=== PATIENT | male | born 1970 | race Caucasian/White ===

== ENCOUNTER 2016-11-18 07:11 | Emergency (ER) | payer SELFPAY ==
[~2016-11-18] VITALS: Wt 100.0 kg
[2016-11-18] MEDS ORDERED: ACETAMINOPHEN 500 MG TAB PO STA (08:00)
[2016-11-18] MEDS ORDERED: LIDOCAINE 2% VISC 15 ML CUP PO ONE (08:00)
[2016-11-18] MEDS ORDERED: D-ME473S18 PO (08:34)
[2016-11-18] MEDS ORDERED: AZIT250T94 PO (08:34)
[2016-11-18] MEDS ORDERED: TYL500 PO (08:35)
--- NOTE | 2016-11-18 09:00 | ERD ---
ER Documentation Chief Complaint Date/Time DATE: 11/18/16 TIME: 08:55 Chief Complaint sore throat for 4 days cough and congestion with fevers HPI This is a 46-year-old male presents to the ER with fever, sore throat, cough, loss of voice for the last 4 days. Cough is dry and constant. Patient denies any chest pain or shortness of breath. Patient has a past medical history of diabetes. He is compliant with medication. Patient did get his flu shot. ROS 12 point review of systems was done, all negative except per HPI. Medications Home Meds Active Scripts Acetaminophen* (Tylenol*) 500 Mg Tab, 1000 MG PO Q8H Y for PAIN AND OR ELEVATED TEMP for 3 Days, TAB Prov:VELMACINDY STEWART C 11/18/16 Dextromethorphan Hb-Promethazine Hcl (Promethazine DM Syrup) 473 Ml Syrup, 10 ML PO Q6H Y for COUGH, #4 OZ Prov:VELMA,CINDY C 11/18/16 Azithromycin* (Zithromax*) 250 Mg Tablet, 250 MG PO .ZPACK DIRECTED, #6 TAB TAKE 500 MG (2 TABS) THE FIRST DAY THEN 250 MG (1 TAB) DAYS 2-5 Prov:VELMA,CINDY C 11/18/16 Allergies Allergies: Coded Allergies: No Known Allergy (Unverified , 11/18/16) PMhx/Soc Medical and Surgical Hx: pt denies Medical Hx, pt denies Surgical Hx Hx Alcohol Use: No Hx Substance Use: No Hx Tobacco Use: No Smoking Status: Never smoker Physical Exam Vitals Vital Signs Date Time Temp Pulse Resp B/P Pulse Ox O2 Delivery O2 Flow Rate FiO2 11/18/16 07:17 100.2 112 21 139/84 97 Physical Exam GENERAL: The patient is well-developed, well-nourished, in no acute distress. NECK: Cervical spine is non tender with no step off. Supple, no nuchal rigidity HEENT: Atraumatic. Pupils equal, round and reactive to light. Extraocular muscles are grossly intact. Conjunctivae pink, no discharge. Bilateral tympanic membranes are clear with no evidence of erythema, effusion or dulling of the light reflex. Tonsilar erythema with no exudates or uvular deviation. Clear rhinorrhea. RESPIRATORY: Clear to auscultation bilaterally. There are no rales, wheezes or rhonchi. HEART: Regular rate and rhythm. No murmurs, clicks, rubs or gallops. EXTREMITIES: No clubbing or cyanosis. Full range of motion. Grossly neurovascularly intact. NEUROLOGIC: Alert and oriented. Cranial nerves II through XII are intact. SKIN: There is no rash. The skin is warm and dry. Results 24 hrs Current Medications Medications (Trade) Dose Ordered Sig/Esteban Route PRN Reason Start Time Stop Time Status Last Admin Dose Admin Lidocaine (Xylocaine (Viscous)) 15 ml ONCE ONCE PO 11/18/16 08:00 11/18/16 08:01 DC 11/18/16 08:06 Acetaminophen (Tylenol Tab) 1,000 mg ONCE STAT PO 11/18/16 08:00 11/18/16 08:01 DC 11/18/16 08:06 Procedures/MDM Differential diagnosis includes but is not limited to; Viral URI, allergic rhinitis, bronchitis, pertussis,pneumonia. Patient has an upper respiratory infection viral vs bacterial. Since patient is diabetic and is worsening he will be treated for a possible bacterial upper respiratory infection. He will be sent home with azithromycin. Clinical suspicion for pneumonia is low as patient appears well, is not hypoxic or in any respiratory distress. Additionally, patients physical examination is benign. Plan was discussed with patient they understand and agree. Patient needs to follow up with PCP in 1-2 days or return to ER sooner if symptoms worsen. Departure Diagnosis: Primary Impression: Upper respiratory infection Condition: Stable Patient Instructions: Preventing Common Respiratory Infections Additional Instructions: Llame al doctor BILLY y mookie jayson KEYUR PARA DENTRO DE 1-2 MENDOZA.Dgale a la secretaria que nosotros le instruimos hacer esta keyur.Avise o llame si hernandez condicin se empeora antes de la keyur. Regresa aqui si peor o no mejor. CINDY CARREON Nov 18, 2016 08:59
== END 2016-11-18 09:10 | disposition home or self-care (01) ==
LOC: FTE 07:11
DX: J06.9 Acute upper respiratory infection, unspecified (principal)
CPT/HCPCS: 99283

== ENCOUNTER 2017-08-15 12:37 | Inpatient (IN) | payer MEDICAID ==
[~2017-08-15] VITALS: Ht 167.6 cm; Wt 102.0 kg
[~2017-08-15 12:37] MED LIST: AZIT250T94 PO; D-ME473S18 PO; TYL500 PO
[2017-08-15] MEDS ORDERED: SOD CHLORIDE 0.9% 1,000 ML IV STA (13:15)
--- NOTE | 2017-08-15 13:20 | ERD ---
ER Documentation Chief Complaint Chief Complaint generalized weakness, dizziness x 1 day; HPI Patient is a 47-year-old diabetic male who presents to the ER with approximately 1 hour of sudden onset, constant, moderate generalized weakness and dizziness. Describes the dizziness as lightheadedness and feeling like his whole body is heavy. He denies chest pain or shortness of breath. He denies fever or vomiting. He states that he took his diabetes medicine today but has not eaten yet. He is on Januvia and metformin. ROS All systems reviewed and are negative except as per history of present illness. Medications Home Meds Reported Medications Ergocalciferol (Vitamin D2) (VITAMIN D2) 50,000 Unit Capsule, 00322 UNIT PO Q7D , CAP 08/15/17 Atorvastatin Calcium* (Atorvastatin Calcium*) 20 Mg Tablet, 20 MG PO DAILY, #30 TAB 08/15/17 Glipizide* (Glipizide*) 5 Mg Tablet, 5 MG PO AC BREAKFAST DINNER, TAB 08/15/17 Metformin Hcl* (Metformin Hcl*) 500 Mg Tablet, 500 MG PO WITH BREAKFAST DINNE, # 60 TAB 08/15/17 Discontinued Scripts Acetaminophen* (Tylenol*) 500 Mg Tab, 1000 MG PO Q8H Y for PAIN AND OR ELEVATED TEMP for 3 Days, TAB Prov:VELMACINDY STEWART 11/18/16 Dextromethorphan Hb-Promethazine Hcl (Promethazine DM Syrup) 473 Ml Syrup, 10 ML PO Q6H Y for COUGH, #4 OZ Prov:VELMAJAZZYCINDY C 11/18/16 Azithromycin* (Zithromax*) 250 Mg Tablet, 250 MG PO .ZPACK DIRECTED, #6 TAB TAKE 500 MG (2 TABS) THE FIRST DAY THEN 250 MG (1 TAB) DAYS 2-5 Prov:VELMACINDY C 11/18/16 Allergies Allergies: Coded Allergies: No Known Allergy (Unverified , 08/15/17) PMhx/Soc Past medical history: Diabetes mellitus, hyperlipidemia Past surgical history: Denies Social history: Drinks occasional alcohol, denies tobacco or illicit drugs Hx Alcohol Use: No Hx Substance Use: No Hx Tobacco Use: No FmHx Family History: diabetes, No coronary disease Physical Exam Vitals Vital Signs Date Time Temp Pulse Resp B/P Pulse Ox O2 Delivery O2 Flow Rate FiO2 08/15/17 17:32 94 16 137/83 100 Room Air 08/15/17 15:15 90 18 141/52 98 Room Air 08/15/17 13:15 98.6 92 18 135/89 99 08/15/17 12:48 98.3 104 18 138/81 96 Physical Exam Const: Alert, no acute distress Head: Atraumatic Eyes: Normal Conjunctiva, No pallor, no icterus ENT: Normal External Ears, Nose and Mouth. Mucous membranes moist Neck: Full range of motion..~ No meningismus. Resp: Clear to auscultation bilaterally, No wheezes, no rales Cardio: Regular rate and rhythm, no murmurs Abd: Soft, non tender, non distended. Skin: No petechiae or rashes Back: No midline or flank tenderness Ext: No cyanosis, or edema Neur: Awake and alert, Cranial nerves II through XII intact bilaterally, strength and sensation full in 4 extremities, no pronator drift Psych: Normal Mood and Affect Result Diagram: 08/15/17 1325 08/15/17 1325 Results 24 hrs Laboratory Tests Test 08/15/17 13:15 08/15/17 13:25 08/15/17 14:20 Bedside Glucose 202mg/dL White Blood Count 8.610^3/ul Red Blood Count 4.7010^6/ul Hemoglobin 15.0g/dl Hematocrit 43.5% Mean Corpuscular Volume 92.6fl Mean Corpuscular Hemoglobin 31.9pg Mean Corpuscular Hemoglobin Concent 34.5g/dl Red Cell Distribution Width 11.5% Platelet Count 66742^3/UL Mean Platelet Volume 11.1fl Neutrophils % 56.5% Lymphocytes % 34.6% Monocytes % 6.6% Eosinophils % 1.4% Basophils % 0.3% Nucleated Red Blood Cells % 0.0/100WBC Neutrophils # 4.910^3/ul Lymphocytes # 3.010^3/ul Monocytes # 0.610^3/ul Eosinophils # 0.110^3/ul Basophils # 0.010^3/ul Nucleated Red Blood Cells # 0.010^3/ul Sodium Level 138mmol/L Potassium Level 3.7mmol/L Chloride Level 98mmol/L Carbon Dioxide Level 26mmol/L Anion Gap 18 Blood Urea Nitrogen 14mg/dl Creatinine 0.63mg/dl Glucose Level 225mg/dl Calcium Level 9.0mg/dl Troponin I < 0.012ng/ml Ethyl Alcohol Level < 10.0mg/dl Urine Color YELLOW Urine Clarity CLEAR Urine pH 5.0 Urine Specific [place] 1.019 Urine Ketones NEGATIVEmg/dL Urine Nitrite NEGATIVEmg/dL Urine Bilirubin NEGATIVEmg/dL Urine Urobilinogen NEGATIVEmg/dL Urine Leukocyte Esterase NEGATIVELeu/ul Urine Hemoglobin NEGATIVEmg/dL Urine Glucose 1+mg/dL Urine Total Protein NEGATIVEmg/dl Urine Opiates Screen Negative Urine Barbiturates Negative Urine Amphetamines Screen Negative Urine Benzodiazepines Screen Negative Urine Cocaine Screen Negative Urine Cannabinoids Positive Current Medications Medications (Trade) Dose Ordered Sig/Esteban Route PRN Reason Start Time Stop Time Status Last Admin Dose Admin Sodium Chloride (NS) 1,000 ml @ 1,000 mls/hr Q1H STAT IV 08/15/17 13:15 08/15/17 14:14 DC 08/15/17 13:42 Aspirin (Aspirin) 162 mg ONCE ONCE PO 08/15/17 20:00 08/15/17 20:01 DC Ondansetron HCl (Zofran Inj) 4 mg ER BRIDGE PRN IV NAUSEA AND/OR VOMITING 08/15/17 20:00 08/16/17 19:59 Acetaminophen (Tylenol Tab) 650 mg ER BRIDGE PRN PO MILD PAIN/FEVER 08/15/17 20:00 08/16/17 19:59 Atorvastatin Calcium (Lipitor) 20 mg DAILY PO 08/16/17 09:00 UNV IV Flush (NS 3 ml) 3 ml PER PROTOCOL IV 08/15/17 20:00 UNV Ondansetron HCl (Zofran Tab) 4 mg Q6H PRN PO NAUSEA AND/OR VOMITING 08/15/17 20:00 UNV Nitroglycerin (Nitroglycerin (Sl Tab) 0.4 Mg) 1 tab Q5M PRN SL CHEST PAIN 08/15/17 20:00 UNV Acetaminophen (Tylenol Tab) 650 mg Q6H PRN PO PAIN LEVEL 1-3 OR FEVER 08/15/17 20:00 UNV Miscellaneous Information (* Miscellaneous Pharmacy Order) Discontinue current oral sulfonylur... ONCE ONCE XX 08/15/17 20:00 08/15/17 20:01 UNV Diagnostic Test (Pha) (Accu-Chek) 1 XX 08/16/17 02:00 UNV Miscellaneous Information (* Miscellaneous Pharmacy Order) HYPOGLYCEMIA PROTOCOL w... ONCE ONCE XX 08/15/17 20:00 08/15/17 20:01 UNV Insulin Aspart (Novolog Insulin Pen) NOVOLOG *MILD* ALGORITHM WITH MEALS BEDTIME SC 08/15/17 21:00 UNV Miscellaneous Information (* Miscellaneous Pharmacy Order) Discontinue all previ... ONCE ONCE XX 08/15/17 20:00 08/15/17 20:01 UNV Procedures/MDM EKG read by me: Time 1306, rate 101 Rhythm: Sinus tachycardia [place]: Rightward axis Intervals: Normal ST-T waves: no ischemic changes Ectopy: No Q-waves: V2 only Impression: Borderline tachycardia without ischemic changes MDM: Patient is a 47-year-old male who presents to the ER with acute generalized weakness. He later complained of left-sided weakness, but this was not apparent on exam. He did have variable effort during the exam. His workup was unremarkable, but on reassessment, his stated that she been contacted by his [id number] who saw him at the onset of symptoms, and states that he nearly passed out and was unable to speak for 15 minutes. There is no report of unilateral weakness during this episode. The patient had a tox screen positive for cannabis, but initially did not disclose using any drugs. He subsequently stated that he had used cannabis 1 month ago, but when we he was told that this was not likely to result in a positive tox screen, he stated that it may have been a week ago or 3 days ago. On reassessment, the states that the patient still remains confused. He does not have any specific signs of cannabis intoxication and he vehemently denies using cannabis today. Given the report of a 15 minute period of inability to speak and current disorientation, I will admit the patient for further workup. Head CT was performed and is unremarkable. The patient was given a dose of aspirin. There is no ethanol intoxication. I suspect that there may be underlying conversion disorder or anxiety as the cause of the patient's symptoms, but given lack of certainty and potential for more serious diagnosis, as well as the patient's comorbidities, I will admit him to observation for TIA workup. Case was discussed with Dr. Murray. Departure Diagnosis: Primary Impression: Acute weakness Additional Impression: TIA (transient ischemic attack) Transient cerebral ischemia type: unspecified Qualified Code: G45.9 - Transient cerebral ischemia, unspecified type Condition: ANISA Romero MD Aug 15, 2017 13:20
[2017-08-15 13:40] LABS: BASOPHILS % 0.3 % (0.0-2.0); EOSINOPHILS # 0.1 10^3/ul (0.0-0.5); EOSINOPHILS % 1.4 % (0.0-7.0); HEMATOCRIT 43.5 % (42.0-52.0); LYMPHOCYTES % 34.6 % (15.0-51.0); MEAN CORPUSCULAR HEMOGLOBIN 31.9 pg (29.0-33.0); MEAN CORPUSCULAR HGB CONC 34.5 g/dl (32.0-37.0); MEAN CORPUSCULAR VOLUME 92.6 fl (82.0-101.0); MEAN PLATELET VOLUME 11.1 fl (7.4-10.4); MONOCYTE # 0.6 10^3/ul (0.3-0.9); MONOCYTES % 6.6 % (0.0-11.0); NEUTROPHIL # 4.9 10^3/ul (1.6-7.5); NEUTROPHILS % 56.5 % (39.0-77.0); PLATELET COUNT 212 10^3/UL (140-415); RED CELL DISTRIBUTION WIDTH 11.5 % (11.5-14.5); WHITE BLOOD COUNT 8.6 10^3/ul (4.8-10.8)
--- NOTE | 2017-08-15 13:45 | RADRPT ---
PROCEDURE: XR Chest. CLINICAL INDICATION: Syncope TECHNIQUE: Frontal chest x-ray was obtained. COMPARISON: None. FINDINGS: Heart is not enlarged. Mediastinum is not widened. No hilar mass is seen. Lungs are clear of any inf iltrates. There is no effusion or pneumothorax. IMPRESSION: No evidence for active cardiopulmonary disease. .Clyde Heart MD, MD Date Time Electronically viewed and signed by .Clyde Heart MD, MD on 08/15/2017 13:44 .A/
[2017-08-15 13:52] LABS: ANION GAP 18 (8-16); BLOOD UREA NITROGEN 14 mg/dl (7-20); CARBON DIOXIDE 26 mmol/L (21-31); CHLORIDE 98 mmol/L (97-110); CREATININE 0.63 mg/dl (0.61-1.24); GLUCOSE 225 mg/dl (70-220); POTASSIUM 3.7 mmol/L (3.5-5.1); SODIUM 138 mmol/L (135-144)
[2017-08-15 13:54] LABS: ETHANOL < 10.0 mg/dl
[2017-08-15 14:07] LABS: TROPONIN-I < 0.012 ng/ml (0.00-0.12)
[2017-08-15 14:32] LABS: ADD UMIC NO; UR ASCORBIC ACID NEGATIVE (NEGATIVE); UR BILIRUBIN (Dip) NEGATIVE (NEGATIVE); UR BLOOD (Dip) NEGATIVE (NEGATIVE); UR CLARITY CLEAR (CLEAR); UR COLOR YELLOW (YELLOW); UR GLUCOSE (Dip) 1+ mg/dL (NEGATIVE); UR KETONES (Dip) NEGATIVE (NEGATIVE); UR LEUKOCYTE ESTERASE (Dip) NEGATIVE Leu/ul (NEGATIVE); UR NITRITE (Dip) NEGATIVE (NEGATIVE); UR SPECIFIC GRAVITY (Dip) 1.019 (1.003-1.030); UR TOTAL PROTEIN (Dip) NEGATIVE (NEGATIVE); UR UROBILINOGEN (Dip) NEGATIVE (NEGATIVE)
[2017-08-15 14:51] LABS: BARBITURATES Negative (NEGATIVE); BENZODIAZEPINES Negative (NEGATIVE); CANNABINOIDS Positive (NEGATIVE); COCAINE Negative (NEGATIVE); OPIATES Negative (NEGATIVE)
[2017-08-15] MEDS ORDERED: GLIP5TAB13 PO (16:37)
[2017-08-15] MEDS ORDERED: METF500T4 PO (16:37)
--- NOTE | 2017-08-15 17:58 | RADRPT ---
PROCEDURE: CT Brain without contrast. CLINICAL INDICATION: Weakness, dizziness, altered mental status TECHNIQUE: Routine CT scan of the brain was performed on a high resolution multi detector scanner without intravenous contrast. One or more of the following dose reduction techniques were used: Auto mated exposure control; Adjustment of the mA and/or kV according to patient size; Use of iterative r econstruction technique. CTDI = 44 mGy. DLP = 720 mGy-cm. DICOM images are available. COMPARISON: No prior relevant examinations are available for comparison. FINDINGS: Hemorrhage: No evidence of intracranial hemorrhage. Acute ischemic changes: No evidence of acute ischemic changes. Mass effect: None. Parenchymal volume: Within normal limits for age. Ventricular system: Concordant with parenchymal volume. Chronic changes: Parenchymal attenuation is within normal limits. Extracranial soft tissues: Unremarkable. Calvarium: No fractures. Paranasal sinuses: Visualized paranasal sinuses are clear. Mastoid air cells: Visualized mastoid air cells are clear. IMPRESSION: No acute intracranial abnormalities. Normal appearance of the brain parenchyma. MRI of the brain recommended for further evaluation. RPTAT: AADD .Abiodun Monge MD, MD Date Time Electronically viewed and signed by .Abiodun Monge MD, MD on 08/15/2017 17:58 .B/
[2017-08-15] MEDS ORDERED: ATOR20TA38 PO (18:26)
[2017-08-15] MEDS ORDERED: ERGO500037 PO (18:26)
[2017-08-15] MEDS ORDERED: ONDANSETRON 4 MG INJ IV PRN (20:00)
[2017-08-15] MEDS ORDERED: NITROGLYCERIN (SL) 0.4 MG TAB SL PRN (20:00)
[2017-08-15] MEDS ORDERED: ASPIRIN 81 MG TAB PO ONE (20:00)
[2017-08-15] MEDS ORDERED: ACETAMINOPHEN 325 MG TAB PO PRN ×2 (20:00)
[2017-08-15] MEDS ORDERED: ONDANSETRON 4 MG TAB PO PRN (20:00)
[2017-08-15] MEDS ORDERED: NACL 0.9% 3 ML SYG IV SCH (20:00)
[2017-08-15 20:24] VITALS: TEMP 98.8
[2017-08-15 20:50] VITALS: BP 115/67; RESP 18
[2017-08-15] MEDS ORDERED: GLUCOSE GEL 15 GRAM TUBE PO PRN ×2 (21:00)
[2017-08-15] MEDS ORDERED: GLUCAGON 1 MG INJ IM PRN (21:00)
[2017-08-15] MEDS: INSULIN ASPART [NOVOLOG] 3 ML PEN SC SCH (21:00)
[2017-08-15] MEDS ORDERED: GLUCOSE GEL 15 GRAM TUBE BUCCAL PRN (21:00)
[2017-08-15] MEDS ORDERED: DEXTROSE 50% 50 ML SYRINGE IV PRN ×2 (21:00)
[2017-08-15 21:10] VITALS: PULSE 81
[2017-08-15 21:48] LABS: CREATINE KINASE 63 IU/L (23-200)
[2017-08-15 22:05] LABS: CK-MB 0.29 ng/ml (0.0-2.4); TROPONIN-I < 0.012 ng/ml (0.00-0.12)
[2017-08-15] MEDS: ATORVASTATIN 20 MG TAB PO SCH (22:10)
[2017-08-15 22:14] VITALS: Ht 167.6 cm; Wt 102.0 kg
[2017-08-16] VITALS (13 sets, daily range): BP systolic 104–118; BP diastolic 59–75; PULSE 66–75; RESP 17–20
[2017-08-16 01:47] LABS: CREATINE KINASE 63 IU/L (23-200)
[2017-08-16] MEDS: ACCU-CHEK XX SCH (02:00)
[2017-08-16 02:07] LABS: CK-MB 0.26 ng/ml (0.0-2.4); TROPONIN-I < 0.012 ng/ml (0.00-0.12)
--- NOTE | 2017-08-16 05:22 | HP ---
Date/Time of Note Date/Time of Note DATE: 08/16/17 TIME: 04:48 Assessment/Plan VTE Prophylaxis VTE Prophylaxis Intervention: SCD's Lines/Catheters IV [facility]from [facility] Saline [facility] Assessment/Plan Chief Complaint/Hosp Course This is a 47-year-old male being admitted to the telemetry floor for: #1 altered mental status: Rule out TIA versus hypoglycemic event versus possible drug reaction versus other intracranial etiology. Patient's's symptoms have completely resolved at this point. CT of the brain was negative. Will obtain an MRI of his brain with and without contrast. Will obtain a carotid Dopplers. Will check echocardiogram with bubble study. Will monitor on telemetry. Will assess his glucose levels. Check hemoglobin A1c, lipid levels and TSH. Will need to encourage patient that when he takes a diabetes medications to make sure he does not skip meals. Consult neurology if indicated #2 diabetes mellitus: At the current time will hold metformin and Januvia. Will monitor his blood sugars put patient on insulin sliding scale. Will check a hemoglobin A1c. Will need to encourage patient to not skip meals when taking his diabetes medications. Check urine microalbumin. #3 hyper lipidemia: We will check lipid panel, and assess for need for statin based on ASCVD risk. #4 DVT and GI prophylaxis: SCDs, no GI prophylaxis indicated Further treatment strategy will be implemented as per the clinical course Problems: HPI/ROS Admit Date/Time Admit Date/Time Aug 15, 2017 at 19:52 Hx of Present Illness Chief complaint: Generalized weakness, possible syncope This is a 47-year-old diabetic male who presented to the ER with approximately 1 hour of sudden onset, constant, moderate generalized weakness and dizziness. Described the dizziness as lightheadedness and feeling like his whole body is heavy. He denies chest pain or shortness of breath. He denies fever or vomiting. He states that this occurred while he was at work. He states that in the morning he was doing totally fine however when he was at work he took his diabetes medications and while he was sitting on the chair he started feeling the weakness and dizziness. The next thing he remembers was that he had his coworkers lay him on the floor gently. He does not recall what happened after that he thinks he may have blacked out for short time. When he awoke he stated that he was confused and dizzy and was not himself. They suffer a short time he felt numbness burning on the left side of his face and left upper extremity and left lower extremity and this is why he was brought to the ED. states that he took his diabetes medications his metformin and Januvia on an empty stomach which usually does not do. He reports that he used marijuana proximally 2-3 weeks ago Upon my evaluation of the patient, his symptoms had completely resolved. He states that he feels like he is almost close to back to normal. Denies any continuing of that numbness and burning sensation that he felt of his face and left side of his body. Allergies: NKDA Medications: See NOV ROS Const: As per HPI Eyes : No pain discharge or redness or change in visual acuity ENT: No pain, sore throat, congestion, congestion, dysphagia or discharge Respiratory: No shortness of breath, cough, sputum, wheezing, or pleuritic pain Cardiovascular: No chest pain, palpitation, PND, or edema GI : no change in appetite, abdominal pain, nausea, vomiting, diarrhea, constipation, or change in the color his stool Genitourinary: No dysuria, hematuria, flank pain , discharge or CVA tenderness Musculoskeletal: As per HPI Skin: No rash, bruising or hives Neuro: As per HPI Endocrine: No polyuria, polydipsia, temperature intolerance Psych: No hallucination, depression, anxiety or suicidal ideation Additional Comments PROCEDURE: XR Chest. CLINICAL INDICATION: Syncope TECHNIQUE: Frontal chest x-ray was obtained. COMPARISON: None. FINDINGS: Heart is not enlarged. Mediastinum is not widened. No hilar mass is seen. Lungs are clear of any infiltrates. There is no effusion or pneumothorax. IMPRESSION: No evidence for active cardiopulmonary disease. .Clyde Heart MD, MD Date Time Electronically viewed and signed by .Clyde Heart MD, MD on 08/15/2017 13: 44 .A/ CC: ANISA LARRY MD PMH/Family/Social Past Medical History Diabetes, hyperlipidemia Past Surgical History Past Surgical Hx: no surgical history Family History Significant Family History: hypertension (Mom) Social History Alcohol Use: occasionally Smoking Status: Never smoker Drug Use: marijuana Exam/Review of Systems Vital Signs Vitals Vital Signs Date Time Temp Pulse Resp B/P Pulse Ox O2 Delivery O2 Flow Rate FiO2 08/16/17 04:16 66 08/16/17 00:00 97.6 18 118/67 96 08/15/17 20:24 Room Air Intake and Output 08/15/17 08/15/17 08/16/17 15:00 23:00 07:00 Intake Total 1000 ml Balance 1000 ml Exam Exam General: Patient lying in bed in no acute distress HEENT: Atraumatic, normocephalic. The pupils are equal, round and reactive. Extraocular motor are intact Neck: Supple with full range of motion. No rigidity or meningismus Chest: Nontender Lungs: Clear to auscultation bilaterally no crackles rales or wheezing Heart: Normal S1-S2, Regular rhythm and rate. No murmur, S3, or S4 Abdomen: Soft , nontender, nondistended , bowel sounds are present. No guarding no rebound tenderness , No masses or organomegaly. No costovertebral temporal angle mass Extremities: Normal to inspection, no edema no cyanosis Neurologic: Normal mental status, speech normal, cranial nerves II through XII are intact, motor and sensory are intact, no focal weakness, drinks 5 out of 5 in bilateral upper and lower extremities, symmetric appearance of the face Additional Comments EKG read by me: Time 1306, rate 101 Rhythm: Sinus tachycardia [place]: Rightward axis Intervals: Normal ST-T waves: no ischemic changes Ectopy: No Q-waves: V2 only Impression: Borderline tachycardia without ischemic changesPROCEDURE: CT Brain without contrast. CLINICAL INDICATION: Weakness, dizziness, altered mental status TECHNIQUE: Routine CT scan of the brain was performed on a high resolution multi detector scanner without intravenous contrast. One or more of the following dose reduction techniques were used: Automated exposure control; Adjustment of the mA and/or kV according to patient size; Use of iterative reconstruction technique. CTDI = 44 mGy. DLP = 720 mGy-cm. DICOM images are available. COMPARISON: No prior relevant examinations are available for comparison. FINDINGS: Hemorrhage: No evidence of intracranial hemorrhage. Acute ischemic changes: No evidence of acute ischemic changes. Mass effect: None. Parenchymal volume: Within normal limits for age. Ventricular system: Concordant with parenchymal volume. Chronic changes: Parenchymal attenuation is within normal limits. Extracranial soft tissues: Unremarkable. Calvarium: No fractures. Paranasal sinuses: Visualized paranasal sinuses are clear. Mastoid air cells: Visualized mastoid air cells are clear. IMPRESSION: No acute intracranial abnormalities. Normal appearance of the brain parenchyma. MRI of the brain recommended for further evaluation. RPTAT: AADD .Abiodun Mnoge MD, Date Time Electronically viewed and signed by .Abiodun Monge MD, on 08/15/2017 17:58 .B/ CC: ANISA LARRY MD PROCEDURE: XR Chest. CLINICAL INDICATION: Syncope TECHNIQUE: Frontal chest x-ray was obtained. COMPARISON: None. FINDINGS: Heart is not enlarged. Mediastinum is not widened. No hilar mass is seen. Lungs are clear of any infiltrates. There is no effusion or pneumothorax. IMPRESSION: No evidence for active cardiopulmonary disease. .Clyde Heart MD, Date Time Electronically viewed and signed by .Clyde Heart MD, MD on 08/15/2017 13: 44 .A/ CC: ANISA LARRY MD Labs Result Diagram: 08/15/17 1325 08/15/17 1325 Medications Medications Current Medications Atorvastatin Calcium (Lipitor) 20 mg DAILY@21 PO Last administered on t 22:10; Admin Dose 20 MG; Start 08/15/17 at 21:00 Ondansetron HCl (Zofran Tab) 4 mg Q6H PRN PO NAUSEA AND/OR VOMITING; Start 08/15/17 at 20:00 Nitroglycerin (Nitroglycerin (Sl Tab) 0.4 Mg) 1 tab Q5M PRN SL CHEST PAIN; Start 08/15/17 at 20:00 Acetaminophen (Tylenol Tab) 650 mg Q6H PRN PO PAIN LEVEL 1-3 OR FEVER; Start 08/15/17 at 20:00 Diagnostic Test (Pha) (Accu-Chek) 1 ea 02 XX ; Start 08/16/17 at 02:00 Miscellaneous Information 1 ea NOTE XX ; Start 08/15/17 at 21:00 Glucose (Glutose) 15 gm Q15M PRN PO DECREASED GLUCOSE; Start 08/15/17 at 21:00 Glucose (Glutose) 22.5 gm Q15M PRN PO DECREASED GLUCOSE; Start 08/15/17 at 21: 00 Dextrose (D50w Syringe) 25 ml Q15M PRN IV DECREASED GLUCOSE; Start 08/15/17 at 21:00 Dextrose (D50w Syringe) 50 ml Q15M PRN IV DECREASED GLUCOSE; Start 08/15/17 at 21:00 Glucagon (Glucagen) 1 mg Q15M PRN IM DECREASED GLUCOSE; Start 08/15/17 at 21:00 Glucose (Glutose) 15 gm Q15M PRN BUCCAL DECREASED GLUCOSE; Start 08/15/17 at 21 :00 KIERA RODRIGUEZ Aug 16, 2017 05:13
[2017-08-16 06:21] LABS: BASOPHILS % 0.4 % (0.0-2.0); EOSINOPHILS # 0.2 10^3/ul (0.0-0.5); EOSINOPHILS % 2.1 % (0.0-7.0); HEMOGLOBIN 14.6 g/dl (14.0-18.0); LYMPHOCYTES # 3.1 10^3/ul (0.8-2.9); LYMPHOCYTES % 37.9 % (15.0-51.0); MEAN CORPUSCULAR HEMOGLOBIN 31.5 pg (29.0-33.0); MEAN CORPUSCULAR VOLUME 92.9 fl (82.0-101.0); MEAN PLATELET VOLUME 11.3 fl (7.4-10.4); MONOCYTE # 0.7 10^3/ul (0.3-0.9); MONOCYTES % 8.1 % (0.0-11.0); NEUTROPHIL # 4.2 10^3/ul (1.6-7.5); NEUTROPHILS % 51.1 % (39.0-77.0); PLATELET COUNT 217 10^3/UL (140-415); RED BLOOD COUNT 4.63 10^6/ul (4.70-6.10); RED CELL DISTRIBUTION WIDTH 11.9 % (11.5-14.5); WHITE BLOOD COUNT 8.1 10^3/ul (4.8-10.8)
[2017-08-16 06:50] LABS: ALBUMIN 3.9 g/dl (3.3-4.9); ALBUMIN/GLOBULIN RATIO 1.11; BILIRUBIN,INDIRECT 0.5 mg/dl (0-1.1); BILIRUBIN,TOTAL 0.5 mg/dl (0.2-1.3); CALCIUM 9.4 mg/dl (8.4-10.2); CHOL/HDL RATIO 3.6 RATIO; CREATININE 0.66 mg/dl (0.61-1.24); MAGNESIUM 2.1 mg/dl (1.7-2.5); TOTAL PROTEIN 7.4 g/dl (6.1-8.1)
[2017-08-16 07:15] LABS: THYROID STIMULATING HORMONE 1.24 MIU/L (0.465-4.680)
[2017-08-16] MEDS: INSULIN ASPART [NOVOLOG] 3 ML PEN SC SCH ×4 (08:00→21:32)
--- NOTE | 2017-08-16 10:06 | RADRPT ---
PROCEDURE: US Carotids. CLINICAL INDICATION: bruit , presyncope TECHNIQUE: Multiple sonographic of the carotid bifurcation region and vertebral arteries were obta ined utilizing yoo scale, duplex and color-flow imaging. The images were reviewed on a PACS worksta tion. COMPARISON: No prior studies are available for comparison. FINDINGS: Evaluation of the right carotid bifurcation region reveals no significant calcific atherosclerotic d isease. Evaluation of the left carotid bifurcation region reveals no significant calcific atherosclerotic di sease. There is antegrade flow within the vertebral arteries bilaterally. RIGHT CAROTID MEASUREMENTS: Common Carotid Glpxlo13 (cm/sec) Internal Carotid Artery - melvntht51.4 (cm/sec) Internal Carotid Artery - mid53.4 (cm/sec) Internal Carotid Artery - .6 (cm/sec) Internal Carotid/Common Carotid0.69 LEFT CAROTID MEASUREMENTS: Common Carotid Ckipkd670.8 (cm/sec) Internal Carotid Artery - .7 (cm/sec) Internal Carotid Artery - mid50 (cm/sec) Internal Carotid Artery - oaqiue34.6 (cm/sec) Internal Carotid/Common Carotid0.62 RPTAT: AA IMPRESSION: No evidence for hemodynamically significant stenosis in the bilateral internal carotid arteries - va lidated velocity measurements with angiographic measurements, velocity criteria are extrapolated fro m diameter data as defined by the Society of Radiologists in Ultrasound Consensus Conference Radiolo gy 2003; 229;340-346. This study does indirectly reference the measurement of the distal ICA diamet er as the denominator for stenosis measurement. Normal antegrade flow in the vertebral arteries bilaterally. .Osvaldo Arce MD, Date Time Electronically viewed and signed by .Osvaldo Arce MD, MD on 08/16/2017 10:05 .S/
--- NOTE | 2017-08-16 13:44 | RADRPT ---
Echocardiogram Report Patient Name: AALIYAH GREEN Gender: Male Date: 1970 Study Date: 16-Aug-2017 Beauty Therapist: EVE Location: [id number] Ref. Physician: KIERA RODRIGUEZ Quality: Technically Difficult Study Procedures: Transthoracic echocardiogram with complete 2D, M-Mode, and doppler examination. Indications: Possible Transient Ischemic Attack. 2D/M Mode Doppler Measurement Value Normal Ranges Measurement Value Normal Ranges AoR Diam MM 3.3 cm DEJA Vmax 2.8 cm2 LA/Ao MM 1.1 AV Mean Madhu 0.9 m/sec LA Dimen MM 3.5 cm AV Mean PG 3.0 mmHg LVIDd 2D 4.9 3.5 - 5.6 cm AV Peak Madhu 1.1 m/sec LVIDs 2D 3.1 2.1 - 4.1 cm AV Peak PG 5.0 mmHg FS 2D 35.6 % AV VTI 24.1 cm LVPWd 2D 1.1 0.6 - 1.1 cm LVOT Peak Madhu 1.0 m/sec IVSd 2D 1.1 0.6 - 1.1 cm LVOT Peak PG 4.0 mmHg IVS/LVPW 2D 1.1 MV E Peak Madhu 0.8 m/sec EDV 2D 115.0 cm3 MV A Peak Madhu 0.6 m/sec ESV 2D 30.7 cm3 MV E/A 1.3 LVOT Diam 2.0 cm MV Decel Time 190 msec LVOT Area 3.1 cm2 MV E/A 1.3 Findings Left Ventricle: Normal left ventricular systolic function. Overall, normal left ventricular systolic function. Not all segments visualized. Normal left ventricular wall thickness. Ejection fraction is visually estimated at 60 %. Tissue Doppler/Mitral Doppler indices are within normal limits. Right Ventricle: Normal right ventricular size. Normal right ventricular systolic function. Left Atrium: The left atrium is normal in size. Right Atrium: The right atrium is normal in size. Atrial Septum: Bubble study was performed with and with out valsalva indicating no evidence of intra atrial shunt. Mitral Valve: Normal appearance of the mitral valve. Trace mitral regurgitation. Aortic Valve: Normal appearance of the aortic valve. No significant aortic stenosis or insufficiency. Tricuspid Valve: Normal appearance and function of the tricuspid valve with trace physiologic regurgitation. Pulmonic Valve: Normal pulmonic valve appearance. There is trace pulmonic regurgitation by color. Pericardium: Normal pericardium with no significant pericardial effusion. Aorta: Normal aortic root. IVC: Normal size and normal respiratory collapse consistent with normal right atrial pressure. Conclusions 1.Normal left ventricular systolic function. Overall, normal left ventricular systolic function. Not all segments visualized. Normal left ventricular wall thickness. Ejection fraction is visually estimated at 60 %. Tissue Doppler/Mitral Doppler indices are within normal limits. 2.The left atrium is normal in size. 3.Normal appearance of the mitral valve. Trace mitral regurgitation. 4.Normal appearance of the aortic valve. No significant aortic stenosis or insufficiency. 5.Normal appearance and function of the tricuspid valve with trace physiologic regurgitation. 6.Bubble study was performed with and with out valsalva indicating no evidence of intra atrial shunt. Electronically Signed By: Joe Fabian 16-Aug-2017 13:44:33 -0800 Patient Name: AALIYAH GREEN Study Date: 16-Aug-2017 [id number]
--- NOTE | 2017-08-16 17:31 | RADRPT ---
PROCEDURE: MRI Brain without and with contrast. CLINICAL INDICATION: Neurological deficit, TIA. TECHNIQUE: An MRI of the brain was performed utilizing the following sequences: Sagittal T1-weigh raimundo, axial T2-weighted, axial FLAIR, axial T1, coronal GRE axial diffusion-weighted with ADC mapping . Following the uneventful administration of 10 cc Magnevist, postcontrast axial and coronal T1-weig hted images were obtained. Images were viewed on a PACS workstation. COMPARISON: Brain CT 08/15/2017. FINDINGS: Multiple images are degraded by motion. No diffusion weighted abnormalities are seen to suggest the presence of acute ischemia or recent inf arct. There is no intracranial hemorrhage, mass effect, or midline shift. No extra-axial fluid col lection is seen. The ventricles and sulci are minimally enlarged indicative of volume loss. A few tiny foci of T2 and FLAIR hyperintensity are seen in the deep and subcortical white matter, no nspecific in appearance though perhaps reflective of complicated migraines, early microvascular isch emic disease, sequela from prior traumatic or inflammatory insults. The gradient echo images reveal no areas of susceptibility artifact to suggest blood degradation pro ducts or abnormal calcification. No abnormal intraparenchymal, meningeal or ependymal enhancement i s seen. No abnormal intracranial vascular flow voids are noted. The pituitary and sella reveal no abnormali ty. The suprasellar cistern is clear. The visualized paranasal sinuses demonstrate mild scattered m ucosal thickening. The mastoid air cells are clear. IMPRESSION: 1. Suboptimal motion degraded study. No acute intracranial hemorrhage, infarction or mass. No intra cranial enhancing abnormality. 2. A few tiny foci of white matter signal abnormality, nonspecific in appearance though perhaps ref lective of complicated migraines, early microvascular ischemic disease, sequela from prior traumatic or inflammatory insults. 3. Minimal generalized cerebral volume loss. RPTAT: AA .Tre Nuno MD, MD Date Time Electronically viewed and signed by .Tre Nuno MD, MD on 08/16/2017 17:30 .N/
[2017-08-16] MEDS: ATORVASTATIN 20 MG TAB PO SCH (21:11)
[2017-08-17 00:14] VITALS: PULSE 68
[2017-08-17] MEDS: ACCU-CHEK XX SCH (02:27)
[2017-08-17 04:01] VITALS: BP 116/67; RESP 20
[2017-08-17 04:32] VITALS: PULSE 62
[2017-08-17 06:14] LABS: BASOPHILS % 0.5 % (0.0-2.0); EOSINOPHILS # 0.2 10^3/ul (0.0-0.5); EOSINOPHILS % 2.8 % (0.0-7.0); HEMATOCRIT 44.7 % (42.0-52.0); HEMOGLOBIN 15.1 g/dl (14.0-18.0); LYMPHOCYTES # 2.5 10^3/ul (0.8-2.9); MEAN CORPUSCULAR HEMOGLOBIN 31.2 pg (29.0-33.0); MEAN CORPUSCULAR HGB CONC 33.8 g/dl (32.0-37.0); MEAN CORPUSCULAR VOLUME 92.4 fl (82.0-101.0); MEAN PLATELET VOLUME 11.2 fl (7.4-10.4); MONOCYTE # 0.6 10^3/ul (0.3-0.9); NEUTROPHILS % 54.2 % (39.0-77.0); PLATELET COUNT 203 10^3/UL (140-415); RED BLOOD COUNT 4.84 10^6/ul (4.70-6.10); RED CELL DISTRIBUTION WIDTH 11.6 % (11.5-14.5); WHITE BLOOD COUNT 7.4 10^3/ul (4.8-10.8)
[2017-08-17 06:58] LABS: MAGNESIUM 2.1 mg/dl (1.7-2.5); PHOSPHORUS 5.1 mg/dl (2.5-4.9)
[2017-08-17 07:03] LABS: CALCIUM 8.8 mg/dl (8.4-10.2); CREATININE 0.68 mg/dl (0.61-1.24); POTASSIUM 4.4 mmol/L (3.5-5.1)
[2017-08-17] MEDS: INSULIN ASPART [NOVOLOG] 3 ML PEN SC SCH (07:46)
[2017-08-17 08:10] VITALS: PULSE 66
[2017-08-17 08:12] VITALS: BP 110/67; RESP 19
--- NOTE | 2017-08-17 11:12 | PDOCDIS ---
Discharge Instructions DIAGNOSIS Discharge Diagnosis Transient loss of consciousness. CONDITION Patient Condition: Stable HOME CARE INSTRUCTIONS: Diet Instructions: Low Fat /CholesterolSpecial Diet: DIABETIC DIET. FOLLOW UP/APPOINTMENTS Follow-up Plan Chris Hamm MD Specialty: Internal Medicine Office Address: [address] [place], [place] [id number] Office OTHER ORDERS: Other Orders: 1. Resume home medications. Start taking a baby aspirin daily. 2. Follow a low-cholesterol, carbohydrate controlled diet. 3. Follow-up with your primary care physician in the next 2 weeks. If you do not have a primary care physician, please call Dr. Chris Hamm's office. 4. Resume activities as tolerated. LAST GUTIERREZ NP Aug 17, 2017 11:12
[2017-08-17] MEDS ORDERED: ASPI-664 PO (11:13)
--- NOTE | 2017-08-17 12:32 | DS ---
Date/Time of Note Date/Time of Note DATE: 08/17/17 TIME: 12:31 Discharge Summary Admission/Discharge Info Admit Date/Time Aug 17, 2017 at 07:52 Discharge Date/Time Aug 17, 2017 at 11:55 Discharge Diagnosis 1. Transient loss of consciousness. Possible hypoglycemic reaction versus TIA. 2. Diabetes mellitus type 2. 3. Dyslipidemia. 4. Obesity. 5. Marijuana use. Patient Condition: Stable Procedures Brain CT IMPRESSION: No acute intracranial abnormalities. Normal appearance of the brain parenchyma. Brain MRI IMPRESSION: 1. Suboptimal motion degraded study. No acute intracranial hemorrhage, infarction or mass. No intracranial enhancing abnormality. 2. A few tiny foci of white matter signal abnormality, nonspecific in appearance though perhaps reflective of complicated migraines, early microvascular ischemic disease, sequela from prior traumatic or inflammatory insults. 3. Minimal generalized cerebral volume loss. Carotid Doppler IMPRESSION: No evidence for hemodynamically significant stenosis in the bilateral internal carotid arteries 2D Echocardiogram Conclusions 1. Normal left ventricular systolic function. Overall, normal left ventricular systolic function. Not all segments visualized. Normal left ventricular wall thickness. Ejection fraction is visually estimated at 60 %. Tissue Doppler/Mitral Doppler indices are within normal limits. 2. The left atrium is normal in size. 3. Normal appearance of the mitral valve. Trace mitral regurgitation. 4. Normal appearance of the aortic valve. No significant aortic stenosis or insufficiency. 5. Normal appearance and function of the tricuspid valve with trace physiologic regurgitation. 6. Bubble study was performed with and with out Valsalva indicating no evidence of intra atrial shunt. Hx of Present Illness This is a 47-year-old male with past medical history of type 2 diabetes mellitus and dyslipidemia who presented to the emergency room with sudden onset of constant moderate generalized weakness and dizziness with a brief episode of altered level of consciousness that happened at his work. He also reported numbness and burning on the left side of his face and left upper extremity as well as left lower extremity. The patient verbalized that he took his metformin and Januvia on an empty stomach without any food intake. Provided the patient's history of present illness, a clinical decision was made to admit the patient to inpatient setting to have him further evaluated. Hospital Course The patient's chief complaint was extensively evaluated. The patient's brain CT scan was negative for any acute intracranial findings. The patient's brain MRI was also negative for any acute findings. The patient's 2D echocardiogram showed preserved left ventricular ejection fraction with no evidence of any intra-atrial shunt. The patient's carotid Doppler study was negative for any hemodynamically significant stenosis. It is likely that the patient had a a hypoglycemic reaction at the time versus the patient had a transient ischemic attack unless otherwise proved. The patient is already on statins which will be continued. The patient will also be started on low-dose aspirin. The patient was advised to avoid taking diabetes medication on an empty stomach and to avoid skipping meals. The patient's fasting lipid panel was satisfactory. The patient's diabetes was noticed to be well controlled with a hemoglobin A1c of 6.7. The patient is obese with a BMI of 36.3 kg/m. The patient was advised on weight reduction. The patient remained symptom-free throughout the hospital course and the patient is stable for discharge home to be followed up with outpatient primary care physician and possibly outpatient neurology if the patient continues to have similar symptoms. Discharge Disposition/Plan 1. Resume home medications. Start taking a baby aspirin daily. 2. Follow a low-cholesterol, carbohydrate controlled diet. 3. Follow-up with your primary care physician in the next 2 weeks. If you do not have a primary care physician, please call Dr. Chris Hamm's office. 4. Resume activities as tolerated. The patient verbalized understanding of his discharge instructions. The patient was seen in collaboration with Dr. Guardado. Home Meds Active Scripts Aspirin* (Aspirin* EC) 81 Mg Tablet., 81 MG PO DAILY, #30 TAB Prov:LAST GUTIERREZ NP 08/17/17 Reported Medications Ergocalciferol (Vitamin D2) (VITAMIN D2) 50,000 Unit Capsule, [address] UNIT PO Q7D , CAP 08/15/17 Atorvastatin Calcium* (Atorvastatin Calcium*) 20 Mg Tablet, 20 MG PO DAILY, #30 TAB 08/15/17 Glipizide* (Glipizide*) 5 Mg Tablet, 5 MG PO AC BREAKFAST DINNER, TAB 08/15/17 Metformin Hcl* (Metformin Hcl*) 500 Mg Tablet, 500 MG PO WITH BREAKFAST DINNE, # 60 TAB 08/15/17 Discontinued Scripts Acetaminophen* (Tylenol*) 500 Mg Tab, 1000 MG PO Q8H Y for PAIN AND OR ELEVATED TEMP for 3 Days, TAB Prov:CINDY CARREON 11/18/16 Dextromethorphan Hb-Promethazine Hcl (Promethazine DM Syrup) 473 Ml Syrup, 10 ML PO Q6H Y for COUGH, #4 OZ Prov:CINDY CARREON 11/18/16 Azithromycin* (Zithromax*) 250 Mg Tablet, 250 MG PO .ZPACK DIRECTED, #6 TAB TAKE 500 MG (2 TABS) THE FIRST DAY THEN 250 MG (1 TAB) DAYS 2-5 Prov:CINDY CARREON 11/18/16 Follow-up Plan Chris Hamm MD Specialty: Internal Medicine Office Address: [address] [place] [address] [place], [place] [id number] Office Primary Care Provider Care Physician No Primary Time spent on discharge: > 30 minutes Pending Labs Laboratory Tests Test 08/16/17 17:28 08/17/17 02:26 08/17/17 05:50 08/17/17 07:44 Bedside Glucose 130mg/dL (70-220) 172mg/dL (70-220) 166mg/dL (70-220) White Blood Count 7.410^3/ul (4.8-10.8) Red Blood Count 4.8410^6/ul (4.70-6.10) Hemoglobin 15.1g/dl (14.0-18.0) Hematocrit 44.7% (42.0-52.0) Mean Corpuscular Volume 92.4fl (82.0-101.0) Mean Corpuscular Hemoglobin 31.2pg (29.0-33.0) Mean Corpuscular Hemoglobin Concent 33.8g/dl (32.0-37.0) Red Cell Distribution Width 11.6% (11.5-14.5) Platelet Count 50712^3/UL (140-415) Mean Platelet Volume 11.2fl (7.4-10.4) Neutrophils % 54.2% (39.0-77.0) Lymphocytes % 34.0% (15.0-51.0) Monocytes % 8.0% (0.0-11.0) Eosinophils % 2.8% (0.0-7.0) Basophils % 0.5% (0.0-2.0) Nucleated Red Blood Cells % 0.0/100WBC (0.0-0.0) Neutrophils # 4.010^3/ul (1.6-7.5) Lymphocytes # 2.510^3/ul (0.8-2.9) Monocytes # 0.610^3/ul (0.3-0.9) Eosinophils # 0.210^3/ul (0.0-0.5) Basophils # 0.010^3/ul (0.0-0.1) Nucleated Red Blood Cells # 0.010^3/ul (0.0-0.0) Sodium Level 140mmol/L (135-144) Potassium Level 4.4mmol/L (3.5-5.1) Chloride Level 103mmol/L (97-110) Carbon Dioxide Level 28mmol/L (21-31) Anion Gap 13 (8-16) Blood Urea Nitrogen 16mg/dl (7-20) Creatinine 0.68mg/dl (0.61-1.24) Glucose Level 156mg/dl (70-220) Calcium Level 8.8mg/dl (8.4-10.2) Phosphorus Level 5.1mg/dl (2.5-4.9) Magnesium Level 2.1mg/dl (1.7-2.5) LAST GUTIERREZ NP Aug 17, 2017 12:32
[2017-08-18] MEDS ORDERED: ASPIRIN (EC) 81 MG TAB PO SCH (09:00)
[2017-08-18 16:11] LABS: MICROALBUMIN 0.6 mg/dL
== END 2017-08-17 11:55 | disposition home or self-care (01) | DRG 69 ==
LOC: E/R 12:37 → MS4 19:52 → OBSVTOIN 08-17 07:52
PROVIDERS: ADMIT Family Medicine; ATTEND Family Medicine
DX: G45.9 Transient cerebral ischemic attack, unspecified (principal); E11.649 Type 2 diabetes mellitus with hypoglycemia without coma; R55 Syncope and collapse; E11.9 Type 2 diabetes mellitus without complications; E78.5 Hyperlipidemia, unspecified; E66.9 Obesity, unspecified; F12.90 Cannabis use, unspecified, uncomplicated; R41.82 Altered mental status, unspecified; R42 Dizziness and giddiness; Z68.36 Body mass index [BMI] 36.0-36.9, adult
CPT/HCPCS: 70450; 70553; 71010; 80048; 80053; 80061; 80306; 80307; 81003; 82043; 82550; 82553; 82962; 83036; 83735; 84100; 84443; 84484; 85025; 93005; 93306; 93880; 96360; G0378; J1815; J7030